=== PATIENT | female | born 1965 | race Caucasian/White ===

== ENCOUNTER 2018-09-19 18:07 | Emergency (ER) | payer OTHER ==
--- NOTE | 2018-09-19 18:48 | EDPHY ---
H & P Stated Complaint: dropped ladder on r hand/forearm Time Seen by Provider: 09/19/18 18:28 HPI/ROS: CHIEF COMPLAINT: Right arm injury HISTORY OF PRESENT ILLNESS: This is a 53-year-old female in general good health who was putting away a collapsible latter after changing a light bulb. She had her arm between the legs of the ladder and collapsed on its own, landing on her right forearm and hand. She had instantaneous onset of pain. She is right-hand dominant. REVIEW OF SYSTEMS: A ten system review of systems was performed and is negative with the exception of the items mentioned in the HPI. Past medical history: Hypertension, heart murmur Past surgical history: Noncontributory Social history: No tobacco use. She works at [employer]. She is . General Appearance: Alert. Vital signs reviewed. Tearful. Initial blood pressure 171/108. Eyes: Pupils equal and round, no conjunctival injection, no discharge. Anicteric. ENT, Mouth: Mucous membranes are moist, no oropharyngeal erythema or edema. Neck: Nontender to palpation over the cervical spine in the midline and no pain with active range of motion of her neck. Respiratory: Lungs are clear to auscultation; no wheezes, rales, or rhonchi. Cardiovascular: Regular rate and rhythm; no murmur, rub, or gallop. Gastrointestinal: Abdomen is soft and nontender. Skin: Warm and dry, no rashes on exposed skin, normal color. Back: Nontender to palpation over the thoracolumbar spine. Extremities: Right arm with bruising over the anterior distal forearm, just proximal to the wrist. The distal portion of her right thumbnail is torn--no nail bed exposure. She is able to flex and extend at the elbow and wrist over her right arm. It is painful for her to flexor wrist but she has full range of motion. She can flex and extend all 5 digits of the right hand. Pulses: 2+ radial pulse. Neurological: Alert and oriented. Moving all four extremities spontaneously. Sensation intact to light touch over her right upper extremity. Psychiatric: Normal affect. - Personal History LMP (Females 10-55): Post Menopausal Current Tetanus Diphtheria and Acellular Pertussis (TDAP): Yes - Medical/Surgical History Hx Asthma: No Hx Chronic Respiratory Disease: No Hx Diabetes: No Hx Cardiac Disease: No Hx Renal Disease: No Hx Cirrhosis: No Hx Alcoholism: No Hx HIV/AIDS: No Hx Splenectomy or Spleen Trauma: No Other PMH: htn, heart murmur - Social History Smoking Status: Former smoker Constitutional: Initial Vital Signs Temperature (C) 36.8 C 09/19/18 18:15 Heart Rate 71 09/19/18 18:15 Respiratory Rate 18 09/19/18 18:15 Blood Pressure 171/108 H 09/19/18 18:15 O2 Sat (%) 95 09/19/18 18:15 O2 Delivery Mode Room Air Allergies/Adverse Reactions: bupropion HCl [From Zyban] Allergy (Verified 01/29/13 14:13) Home Medications: Medication Instructions Recorded Losartan Potassium 09/19/18 Medical Decision Making ED Course/Re-evaluation: Blunt trauma to the right forearm and hand. X-rays the right forearm and right hand, as interpreted by me, are negative for fracture or dislocation. The patient will be treated symptomatically with a sling to use as needed for comfort, pain medication, and R.I.C.E. Danger signs that should prompt immediate follow-up were reviewed with her. She is aware that her blood pressure was high in the emergency department. She has a history of hypertension and takes an antihypertensive medication. 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 Differential Diagnosis: I considered a differential diagnosis that includes but is not limited to fracture, dislocation, contusion, abrasion, laceration. - Data Points Medications Given: Discontinued Medications Hydrocodone Bitart/Acetaminophen ([place] 5/325mg Prepack#6) 1 btl TAKEHOME EDNOW ONE Stop: 09/19/18 19:16 Last Admin: 09/19/18 19:27 Dose: 1 btl Ibuprofen (Motrin) 600 mg PO EDNOW ONE Stop: 09/19/18 19:10 Last Admin: 09/19/18 19:27 Dose: 600 mg Departure - Departure Disposition: Home, Routine, Self-Care Clinical Impression: Contusion Qualifiers: Encounter type: initial encounter Contusion area: forearm Laterality: right Qualified Code(s): S50.11XA - Contusion of right forearm, initial encounter Condition: Good Instructions: Hydrocodone/Acetaminophen (By mouth), Contusion in Adults (ED), R.I.C.E. Treatment (ED) Additional Instructions: Adult Pain & Fever Control: We recommend Acetaminophen (Tylenol) and Ibuprofen (Motrin,Advil) for pain and fever control. When fever is high or pain severe, both drugs can be used at the same time, but at different intervals. Please note the time differences. Your dose is: Acetaminophen [650]mg every 4 to 6 hours Ibuprofen [400]mg every [6] hours with food OR Note: do not take Acetaminophen with Hydrocodone (Vicodin, Lortab) or Oycodone (Percocet). These medications also contain Acetaminophen. No more than 3000mg of Acetaminophen should be taken in 24 hours (for an adult). Use the sling as needed for comfort. If you are not getting better or if you are worse in any way--persistent numbness, worsening pain, trouble moving her arm or hand--you should be re- evaluated immediately. Referrals: ERIS TONG [Medical Doctor] - As per Instructions
[2018-09-19] MEDS ORDERED: IBUPROFEN 600 MG TAB PO ONE (19:09)
[2018-09-19] MEDS ORDERED: HYDROCOD/APAP 5/325 PREPACK#6 BTL TAKEHOME ONE (19:15)
[2018-09-19 19:36] VITALS: BP 159/96
== END 2018-09-19 19:31 | disposition home or self-care (01) ==
LOC: CED 18:07
DX: S50.11XA Contusion of right forearm, initial encounter (principal); S69.91XA Unspecified injury of right wrist, hand and finger(s), initial encounter; I10 Essential (primary) hypertension; W23.0XXA Caught, crushed, jammed, or pinched between moving objects, initial encounter; Y92.89 Other specified places as the place of occurrence of the external cause; Y93.9 Activity, unspecified; Y99.0 Civilian activity done for income or pay
CPT/HCPCS: 73090-PO; 73130-PO; A4565